=== PATIENT | female | born 1960 | race Caucasian/White ===

== ENCOUNTER 2016-05-01 20:12 | Inpatient (IN) | payer OTHER ==
[~2016-05-01] VITALS: Ht 170.2 cm; Wt 66.9 kg
[2016-05-01] VITALS (8 sets, daily range): BP systolic 145–180; BP diastolic 90–113; PULSE 86–105; RESP 15–61; TEMP 98.7; O2SAT 95–99; Ht 170.2 cm; Wt 66.9 kg
[~2016-05-01 20:12] MED LIST: MORP15TA78 PO
--- OUTSIDE RECORDS SUMMARY | 2016-05-01 20:17 | XMS REPORT | Continuity of Care Document ---
Author Author [facility] Organization [facility] Address Unknown Phone Unavailable Support Name Relationship Address Phone WENDY ALFARO MD Caregiver [address] [place] [address] Unavailable AGUS HERRERA DO Caregiver [address] [place] [address] Unavailable DEBBIEELROY BYRDY Debra Next Of Kin [address], [place] [id number] Insurance Providers Guarantor DebbieIveth Nela Address [address] [place] [address] Email DENIED/NO TO PT PORT [facility] Policy Number [id number] Subscriber's Name Steffen Oden Relationship 01 Spouse Group Number [id number] Group Name SUMI VIVEROS GOLD Effective Date 14 Payer [employer] Policy Number [id number] Subscriber's Name Iveth Oden Relationship 18 Self Group Number [id number] Problems Active Problems Medical Problem Onset Date Status Abnormal CT of the abdomen Unknown Acute Epigastric pain Unknown Acute Leukocytosis Unknown Acute RUQ pain Unknown Acute Past Problems Medical Problem Onset Date Foot laceration Unknown Medications Current Home Medications Medication Dose Units Route Directions Days Qty Instructions Start Date Morphine Sulfate (Ms Contin) 15 Mg Tablet.er 15 Mg Oral Daily for Pain 01/08/16 Social History Social History Problem Response Recorded Date/Time Onset Date Status Has the pt used tobacco in the last 12 months No 04/22/2014 5:58pm Not Applicable Not Applicable Tobacco Usage smoke 04/22/2014 6:15pm Not Applicable Not Applicable Hospital Discharge Instructions Current inpatient/outpatient. Discharge instructions are currently unavailable. Plan of Care Current inpatient/outpatient. The plan of care is currently unavailable Functional Status No functional status results. Allergies, Adverse Reactions, Alerts Allergen Type Severity Reaction Status Last Updated NKDA Allergy Unknown Active 04/22/14 Immunizations Query Response on File Recorded Date/Time Hx Influenza Vaccination No 04/22/14 5:58pm Hx Pneumococcal Vaccination No 04/22/14 5:58pm Hx Influenza Vaccination No 04/22/14 5:58pm Tdap Vaccine Hx PT REPORTS 2 YEARS AGO 01/08/16 5:39pm Vital Signs No known vital signs results. Results Laboratory Results Test Name Result Units Flags Reference Collection Date/Time Result Date/ Time Comments HLA-B27 Interpretation SEE BELOW 02/07/2016 2:45pm 02/09/2016 4: 15pm HLA-B27 antigen was not detected. ADDITIONAL INFORMATION Method: Flow Cytometry Performing Laboratory CLIA# [id number] Test Performed by: [place] [address] Principal Trainer: Evan Craig II, M.D., Ph.D. HLA-B27, [place] [address] Time Analysis Clerk Rafa King MD HLA-B27 Negative 02/07/2016 2:45pm 02/09/2016 4:15pm Reference Range: Not Applicable White Blood Count 9.5 T/MM3 4.5-11.0 04/04/2016 9:55am 04/04/2016 10: 06am Red Blood Count 3.62 M/MM3 L 4.00-5.20 04/04/2016 9:55am 04/04/2016 10: 06am Hemoglobin 10.2 GM/DL L 12-16 04/04/2016 9:55am 04/04/2016 10:06am Hematocrit 33.2 % L 36-46 04/04/2016 9:55am 04/04/2016 10:06am Mean Corpuscular Volume 91.7 UM3 80-100 04/04/2016 9:55am 04/04/2016 10 :06am Mean Corpuscular Hemoglobin 28.2 UUG 26-34 04/04/2016 9:55am 2015 10:06am Mean Corpuscular Hemoglobin Concent 30.7 GM/DL L 31-37 04/04/2016 9:55am 04/04/2016 10:06am RDW Standard Deviation 52.8 FL H 36.9-50.2 04/04/2016 9:55am 04/04/2016 10:06am Platelet Count 539 T/MM3 H 130-400 04/04/2016 9:55am 04/04/2016 10:06am Mean Platelet Volume 9.3 UM3 L 9.4-12.4 04/04/2016 9:55am 04/04/2016 10: 06am Neutrophils % (Manual) 72.0 % H 33-66 04/04/2016 9:55am 04/04/2016 10: 09am Band Neutrophils % 1.0 % 0-6 04/04/2016 9:55am 04/04/2016 10:09am Lymphocytes % (Manual) 16.0 % L 23-45 04/04/2016 9:55am 04/04/2016 10: 09am Monocytes % (Manual) 1.0 % 0-9.0 04/04/2016 9:55am 04/04/2016 10:09am Eosinophils % (Manual) 9.0 % H 0-4 04/04/2016 9:55am 04/04/2016 10:09am Basophils % (Manual) 1.0 % 0-2 04/04/2016 9:55am 04/04/2016 10:09am Metamyelocytes % 2.0 % H 0-0 03/21/2016 10:16am 03/21/2016 10:27am Myelocytes % 2.0 % H 0-0 03/21/2016 10:16am 03/21/2016 10:27am Band Neutrophils # 0.1 T/MM3 04/04/2016 9:55am 04/04/2016 10:09am Absolute Neutrophils (Manual) 6.8 T/MM3 1.8-7.7 04/04/2016 9:55am 04/04 10:09am Lymphocytes # (Manual) 1.5 T/MM3 1-4.8 04/04/2016 9:55am 04/04/2016 10: 09am Monocytes # (Manual) 0.1 T/MM3 0-0.8 04/04/2016 9:55am 04/04/2016 10: 09am Eosinophils # (Manual) 0.9 T/MM3 H 0-0.5 04/04/2016 9:55am 04/04/2016 10 :09am Basophils # (Manual) 0.1 T/MM3 0-0.2 04/04/2016 9:55am 04/04/2016 10: 09am Metamyelocytes # 0.9 T/MM3 03/21/2016 10:16am 03/21/2016 10:27am Myelocytes # 0.9 T/MM3 03/21/2016 10:16am 03/21/2016 10:27am Red Cell Morphology Comment ABNORMAL 04/04/2016 9:55am 04/04/2016 10:09am Anisocytosis 1+ 04/04/2016 9:55am 04/04/2016 10:09am Poikilocytosis 1+ 04/04/2016 9:55am 04/04/2016 10:09am Tear Drop Cells 1+ 03/29/2016 9:32am 03/29/2016 10:28am Icterus Index < 2 0-7 04/04/2016 9:55am 04/04/2016 10:10am Chemistry Specimen Hemolysis < 15 0-25 04/04/2016 9:55am 04/04/2016 10:10am 0-25: Specimen Exhibited No Hemolysis. Turbidity < 20 0-20 04/04/2016 9:55am 04/04/2016 10:10am Sodium Level 145 MEQ/L H 134-144 04/04/2016 9:55am 04/04/2016 10:10am Potassium Level 3.8 MEQ/L 3.6-5 04/04/2016 9:55am 04/04/2016 10:10am Chloride Level 105 MEQ/L 98-107 04/04/2016 9:55am 04/04/2016 10:10am Carbon Dioxide Level 28 MEQ/L 22-30 04/04/2016 9:55am 04/04/2016 10: 10am Anion Gap 12 MEQ/L 5-15 04/04/2016 9:55am 04/04/2016 10:10am Blood Urea Nitrogen 10.0 MG/DL 7-17 04/04/2016 9:55am 04/04/2016 10: 10am Creatinine 0.7 MG/DL 0.7-1.2 04/04/2016 9:55am 04/04/2016 10:10am BUN/Creatinine Ratio 14 RATIO 6-26 04/04/2016 9:55am 04/04/2016 10: 10am Glomerular Filtration Rate Calc 87 04/04/2016 9:55am 04/04/2016 10: 10am Glucose Level 130 MG/DL H 65-110 04/04/2016 9:55am 04/04/2016 10:10am Calculated Osmolality 280 MOSM/KG 261-280 04/04/2016 9:55am 04/04/2016 10:10am Calcium Level 9.1 MG/DL 8.4-10.2 04/04/2016 9:55am 04/04/2016 10:10am Total Bilirubin 0.50 MG/DL 0.20-1.30 04/04/2016 9:55am 04/04/2016 10: 10am Alkaline Phosphatase 83 U/L 38-126 04/04/2016 9:55am 04/04/2016 10: 10am Total Protein 6.9 G/DL 6.3-8.2 04/04/2016 9:55am 04/04/2016 10:10am Albumin 3.9 G/DL 3.5-5.0 04/04/2016 9:55am 04/04/2016 10:10am Globulin 3.0 G/DL 2.4-3.6 04/04/2016 9:55am 04/04/2016 10:10am Albumin/Globulin Ratio 1.3 RATIO 1.1-2.2 04/04/2016 9:55am 04/04/2016 10:10am Aspartate Amino Transf (AST/SGOT) 12 U/L L 14-36 04/04/2016 9:55am 04/04 10:10am Alanine Aminotransferase (ALT/SGPT) 22 U/L 9-52 04/04/2016 9:55am 04/04 10:10am Lactate Dehydrogenase 426 U/L 313-618 04/04/2016 9:55am 04/04/2016 10: 10am Procedures No known history of procedures. Encounters Encounter Location Arrival/Admit Date Discharge/Depart Date Attending Provider Registered [facility] 04/04/16 9:41am WENDY ALFARO MD Discharged Recurring [facility] 02/22/16 10:50am 04/07/16 11: 59pm WENDY ALFARO MD Registered Clinic [facility] 02/07/16 1:21pm AGUS HERRERA DO Registered [facility] 01/31/16 10:16am AGUS HERRERA DO
--- OUTSIDE RECORDS SUMMARY | 2016-05-01 20:17 | XMS REPORT | Continuity of Care Document ---
Author Author [facility] Organization [facility] Address Unknown Phone Unavailable Support Name Relationship Address Phone GREGG DAVIS MD Caregiver [address] [place] [address] [place] [address] [phone] OLINDA RAMSAY FACS, MD Caregiver [address] [place] [address] [place] [address] [phone] STEFFEN LEWIS Next Of Kin [address] [place], [place] [phone] Insurance Providers Payer Name Policy Number Subscriber Name Relationship CAP [id number] Steffen Lewis Advance Directives Directive Response Recorded Date/Time Ordered Resuscitation Status Full Code 04/22/14 6:04pm Resuscitation Documents on File No 04/22/14 5:57pm Chief Complaint and Reason for Visit Chief Complaint ABD PAIN ABN ABD CT SCAN Reason for Visit Leukocytosis Epigastric pain RUQ pain Abnormal CT of the abdomen Problems Medical Problems Problem Onset Date Status Leukocytosis Unknown Active Epigastric pain Unknown Active RUQ pain Unknown Active Abnormal CT of the abdomen Unknown Active Medications Medication Dose Route Sig Days/Qty Instructions Order Date Discontinued Date Status Citalopram Hydrobromide 1 Tab PO DAILY 04/22/14 Active Amox Tr/Potassium Clavulanate 875 Mg PO TWICE DAILY WITH MEALS 7 Days 04/28/14 Active Oxycodone HCl 5-10 Mg PO EVERY 5 HOURS PRN PAIN 40 Qty 04/28/14 Active Social History Social History Problem Response Recorded Date/Time Has the pt used tobacco in the last 12 months No 04/22/2014 5:58pm Tobacco Usage smoke 04/22/2014 6:15pm Query Response Start Date Stop Date Smoking Status Former smoker Hospital Discharge Instructions Instructions: Care Instructions: Reason for Hospitalization: Abdominal pain I was in the hospital because (patient own words): "MY STOMACH HURTS AND I NEED ANTIBIOTICS/PAIN KILLERS" Discharge Diet: regular Discharge Activity: Do not drive, operate machinery while taking pain medication. Follow Up Appointments: CBC in lab at [facility] April 30. Follow up with Dr. Ramsay on May 06 at 4 pm. Patient Instructions: May Shower Notify Physician If: 1. Call your surgeon if you are having problems relating to your hospitaliztion at [phone]. 2. Problems such as: Temp above 101.5 degrees 3.. If the office is closed, call [facility] at [phone] and have your Surgeon paged. Condition at time of discharge: Fair have your Surgeon paged. Condition at time of discharge: Fair Pass Plan of Care Discharge Date 04/28/14 11:10am Disposition 01 DISCHARGED HOME, SELF-CARE Instructions/Education Provided DI for Abdominal Pain-Adult Prescriptions See Medications Section Functional Status Query Response Date Recorded Physical Hygiene Self April 28, 2014 10:26am Disabilities None April 28, 2014 10:26am Devices Used None April 28, 2014 10:26am Dressing Self April 28, 2014 10:26am Ambulation Self April 28, 2014 10:26am Diet Self April 28, 2014 10:26am Mental Status Alert Oriented April 28, 2014 10:26am Disabilities None April 28, 2014 10:26am Devices Used None April 28, 2014 10:26am Physical Hygiene Self April 28, 2014 10:26am Dressing Self April 28, 2014 10:26am Ambulation Self April 28, 2014 10:26am Diet Self April 28, 2014 10:26am Allergies, Adverse Reactions, Alerts Allergen Type Severity Reaction Status Last Updated NKDA Allergy Unknown Active 04/22/14 Immunizations Name Given Type Hx Influenza Vaccination No Historical Hx Pneumococcal Vaccination No Historical Hx Influenza Vaccination No Historical Vital Signs Acute Vital Signs Vital Response Date/Time Temperature (Fahrenheit) 98.0 deg F (96.8 - 99.1) Temperature (Calculated Celsius) 36.67747 degrees C (36.0 - 37.3) Temperature Source Temporal Height 5 ft 7 in Weight 167 lb Body Mass Index 26.0 kg/m^2 Results Test Source Date Result Interp. Ref. Range Comments Alanine Aminotransferase (ALT/SGPT) April 23, 2014 5:00am 38 U/L N 9- 52 Albumin April 23, 2014 5:00am 3.5 G/DL N 3.5-5.0 Albumin/Globulin Ratio April 23, 2014 5:00am 1.3 RATIO N 1.1-2.2 Alkaline Phosphatase April 23, 2014 5:00am 70 U/L DN 38-126 Amylase Level April 23, 2014 5:00am 67 U/L N 30-110 Anion Gap April 27, 2014 4:34am 4 MEQ/L L 5-15 Anisocytosis April 23, 2014 5:00am 1+ - Aspartate Amino Transf (AST/SGOT) April 23, 2014 5:00am 41 U/L H 14- 36 BUN/Creatinine Ratio April 27, 2014 4:34am 13 RATIO N 6-26 Band Neutrophils # April 28, 2014 4:59am 1.6 T/MM3 - Band Neutrophils % April 28, 2014 4:59am 5.0 % N 0-6 Basophils # (Manual) April 28, 2014 4:59am 0.9 T/MM3 H 0-0.2 Basophils % (Manual) April 28, 2014 4:59am 3.0 % H 0-2 Blood Urea Nitrogen April 27, 2014 4:34am 9.0 MG/DL N 7-17 Calcium Level April 27, 2014 4:34am 9.2 MG/DL N 8.4-10.2 Calculated Osmolality April 27, 2014 4:34am 274 MOSM/KG N 261-280 Carbon Dioxide Level April 27, 2014 4:34am 29 MEQ/L N 22-30 Chemistry Specimen Hemolysis April 27, 2014 4:34am < 15 0-25 0-25: No Hemolysis.26-70: Slight Hemolysis - can falsely elevate K and Urine Protein. 71-285: Moderate Hemolysis - can falsely elevate K, Troponin I, CA 19-9, PTH, CSF GLucose, and Urine Protein, and can falsely decrease Phenytoin. 286-999: Gross Hemolysis - can falsely elevate K, Troponin I, CA 19-9, PTH, CSF Glucose, and Urine Protine, and can falsely decrease Phenytoin. Recommend specimen recollection. Chloride Level April 27, 2014 4:34am 110 MEQ/L H 98-107 Creatinine April 27, 2014 4:34am 0.7 MG/DL N 0.7-1.2 Eosinophils # (Manual) April 28, 2014 4:59am 2.8 T/MM3 H 0-0.5 Eosinophils % (Manual) April 28, 2014 4:59am 9.0 % H 0-4 Globulin April 23, 2014 5:00am 2.8 G/DL N 2.4-3.6 Glomerular Filtration Rate Calc April 27, 2014 4:34am 88 - Glucose Level April 27, 2014 4:34am 91 MG/DL N 65-110 Hematocrit April 28, 2014 4:59am 36.7 % N 36-46 Hemoglobin April 28, 2014 4:59am 12.1 GM/DL N 12-16 Icterus Index April 27, 2014 4:34am < 2 0-7 Lab Scanned Report April 22, 2014 9:08am LAB TEST FORM REQUEST [id number] - Lipase April 23, 2014 5:00am 28 U/L N 23-300 Lymphocytes # (Manual) April 28, 2014 4:59am 3.2 T/MM3 N 1-4.8 Lymphocytes % (Manual) April 28, 2014 4:59am 10.0 % L 23-45 Mean Corpuscular Hemoglobin April 28, 2014 4:59am 29.4 UUG N 26-34 Mean Corpuscular Hemoglobin Concent April 28, 2014 4:59am 33.0 GM/DL N 31-37 Mean Corpuscular Volume April 28, 2014 4:59am 89.3 UM3 N 80-100 Mean Platelet Volume April 28, 2014 4:59am 10.9 UM3 N 9.4-12.4 Metamyelocytes # April 28, 2014 4:59am 1.6 T/MM3 - Metamyelocytes % April 28, 2014 4:59am 5.0 % H 0-0 Monocytes # (Manual) April 28, 2014 4:59am 1.3 T/MM3 H 0-0.8 Monocytes % (Manual) April 28, 2014 4:59am 4.0 % N 0-9.0 Myelocytes # April 28, 2014 4:59am 0.3 T/MM3 - Myelocytes % April 28, 2014 4:59am 1.0 % H 0-0 Neutrophils # (Manual) April 28, 2014 4:59am 19.8 T/MM3 H 1.8-7.7 Neutrophils % (Manual) April 28, 2014 4:59am 63.0 % N 33-66 Platelet Count April 28, 2014 4:59am 484 T/MM3 H 130-400 Potassium Level April 27, 2014 4:34am 3.9 MEQ/L N 3.6-5 RDW Standard Deviation April 28, 2014 4:59am 47.2 FL N 36.9-50.2 Reactive Lymphocytes # April 24, 2014 4:53am 0.5 T/MM3 H 0-0 Reactive Lymphocytes % April 24, 2014 4:53am 2.0 % H 0-0 Red Blood Count April 28, 2014 4:59am 4.11 M/MM3 N 4.00-5.20 Sodium Level April 27, 2014 4:34am 143 MEQ/L N 134-144 Total Bilirubin April 23, 2014 5:00am 0.70 MG/DL N 0.20-1.30 Total Protein April 23, 2014 5:00am 6.3 G/DL N 6.3-8.2 Turbidity April 27, 2014 4:34am < 20 0-20 White Blood Count April 28, 2014 4:59am 31.5 T/MM3 PH 4.5-11.0 Name: IVETH LEWIS Unit #: [id number] : 1960 Sex: F Loc / Svc: SR DOS: Signed Report #: [id number] DIAGNOSTIC IMAGING REPORT TYPE OF EXAM: CT ABD/PELVIS W/CONTRAST ONLY Dictated By: KYLE TAYLOR MD INDICATION: ITS.REASON: followup CT ABD/PELVIS W/CONTRAST ONLY: Comparison: None Technique: Axial CT images were performed through the abdomen and pelvis after the administration of intravenous contrast. Contrast: Omnipaque 300 100 mL Findings: Tiny nonspecific nodules in the lower lobes bilaterally. These are not definitely calcified. Minimal atelectasis. The liver enhances normally and may be slightly enlarged. Gallbladder is within normal limits. The spleen is borderline enlarged at 14.5 cm anteroposterior dimension. Small splenule. The pancreas is normal. Adrenal glands are normal. Kidneys show low attenuation foci, too small to characterize. Excretion of contrast appears symmetric from both renal collecting systems. The ureters are normal in course and caliber. Bladder is moderately distended. Uterus is surgically absent. No significant free pelvic fluid. The small and large bowel are normal in caliber without evidence of obstruction. No abdominal or pelvic lymphadenopathy. The appendix is normal. Impression: 1. No acute disease process seen in the abdomen or pelvis. 2. Hepatosplenomegaly. 3. Indeterminate pulmonary nodules. Follow-up chest CT is recommended in 12 months to document stability. There is a preliminary report by [employer] . Addendum: Additional history was provided on April 27, 2014 at 1315. There is an area of induration and stranding in the anterior omentum with a phlegmonous area anterior to the fissure for the falciform ligament seen on axial images # 29 through 35. There is no focal fluid collection or drainable abscess. The area of inflammation measures 4.3 x 1.8 x 3.8 cm in size. This is reportedly much smaller than measurements on a prior study. There is no true enhancing mass in this location. The etiology of this is not entirely clear. Differential considerations would include trauma and omental infarct. . Procedures No known history of procedures. Encounters Encounter Location Date/Time Discharged Inpatient [facility] 04/23/14 10:11am Registered Clinic [facility] 04/22/14 8:40am Recent Diagnosis Leukocytosis Epigastric pain RUQ pain Abnormal CT of the abdomen
--- OUTSIDE RECORDS SUMMARY | 2016-05-01 20:18 | XMS REPORT | Continuity of Care Document ---
Author Author [facility] Organization [facility] Address Unknown Phone Unavailable Support Name Relationship Address Phone GREGG DAVIS MD Caregiver [address] [place] [address] [place] [address] Unavailable VIVIANE GUZMAN MD Caregiver [address] [place] [address] [place] [address] Unavailable DEBBIE STEFFEN A Next Of Kin [address], [place] [id number] Insurance Providers Guarantor DebbieIveth Nela Address [address] [place] [address] Email DENIED/NO TO PT PORT Payer Other A Insurance Policy Number [id number] Subscriber's Name Steffen Oden Relationship 01 Spouse Group Number [id number] Group Name SUMI ALCARAZ Effective Date 14 Payer [employer] Policy Number [id number] Subscriber's Name Iveth Oden Relationship 18 Self Group Number [id number] Chief Complaint and Reason for Visit Chief Complaint Laceration Reason for Visit [id number] Problems Active Problems Medical Problem Onset Date [...] smoke 04/22/2014 6:15pm Not Applicable Not Applicable Query Response Start Date Stop Date Smoking Status Former smoker Hospital Discharge Instructions No hospital discharge instructions. Plan of Care Discharge Date 01/08/16 6:50pm Disposition 01 DISCHARGED HOME, SELF-CARE Condition at Discharge Improved Instructions/Education Provided How to Care for a Laceration After Repair Prescriptions See Medication Section Referrals GREGG DAVIS MD Address: [address] [place] [address] [address] [place], [place] [phone] Additional Instructions/Education Suture removal on 01-21-16 in your PCP's office. Wash gently with soap and water daily. Apply triple antibiotic with clean dressing daily. Watch for signs and symptoms of infection (see treatment plan). Care Plan and Goals Physician Care Plan Problem: Foot Laceration Goal: Follow up with primary care provider Instructions: Take medications and follow care plan as discussed/written Functional Status No functional status results. Allergies, Adverse Reactions, Alerts Allergen Type Severity Reaction Status Last Updated NKDA Allergy Unknown Active 04/22/14 Immunizations Query Response on File Recorded Date/Time Hx Influenza Vaccination No 04/22/14 5:58pm Hx Pneumococcal Vaccination No 04/22/14 5:58pm Hx Influenza Vaccination No 04/22/14 5:58pm Tdap Vaccine Hx PT REPORTS 2 YEARS AGO 01/08/16 5:39pm Vital Signs Acute Vital Signs Vital Response Date/Time Temperature (Fahrenheit) 97.3 deg F (96.8 - 99.1) 01/08/2016 5:22pm Temperature (Calculated Celsius) 36.80906 degrees C (36.0 - 37.3) 01/08/2016 5:22pm Pulse Rate (adult) 71 bpm (60 - 100) 01/08/2016 5:22pm Respiratory Rate 16 breaths/min (10 - 20) 01/08/2016 5:22pm O2 Sat by Pulse Oximetry 96 % (90 - 100) 01/08/2016 5:22pm Blood Pressure 157/89 mm Hg 01/08/2016 5:22pm Height (Feet) 5 feet 01/08/2016 5:22pm Height (Inches) 7.00 inches 01/08/2016 5:22pm Weight (Kilograms) 82.730 kg 01/08/2016 5:22pm Body Mass Index (BMI) 28.0 01/08/2016 5:22pm Results No known relevant diagnostic tests, laboratory data and/or discharge summary. Procedures No known history of procedures. Encounters Encounter Location Arrival/Admit Date Discharge/Depart Date Attending Provider Departed Emergency Room [facility] 01/08/16 5:08pm 01/08/16 6: 50pm VIVIANE GUZMAN MD Recent Diagnosis
--- OUTSIDE RECORDS SUMMARY | 2016-05-01 20:18 | XMS REPORT | Continuity of Care Document ---
Author Author [facility] Organization [facility] Address Unknown Phone Unavailable Support Name Relationship Address Phone WENDY ALFARO MD Caregiver [address] [address] Unavailable AGUS HERRERA DO Caregiver [address] [place] [address] Unavailable DEBBIEELROY BYRDMayra Richardson Next Of Kin [address] [place], [place] [phone] Insurance Providers Guarantor DebbieIveth Nela Address [address] [place] [address] Email DENIED/NO TO PT PORT [facility] Policy Number [id number] Subscriber's Name Steffen Oden Relationship 01 Spouse Group Number [id number] Group Name SUMI VIVEROS GOLD Effective Date 14 Payer [employer] Policy Number [id number] Subscriber's Name Iveth Oden Relationship 18 Self Group Number [id number] Problems Active Problems Medical Problem Onset Date [...] Not Applicable Not Applicable Hospital Discharge Instructions No hospital discharge instructions. Plan of Care Prescriptions See Medication Section Functional Status No functional status results. Allergies, [...] INFORMATION Method: Flow Cytometry Performing Laboratory CLIA# [id number] Test Performed by: [place] [address] Test Consultant: Evan Craig II, M.D., Ph.D. HLA-B27, [place] [address] Whipped Topping Mixer Rafa King MD HLA-B27 Negative 02/07/2016 2:45pm [...] Location Arrival/Admit Date Discharge/Depart Date Attending Provider Discharged Recurring [facility] 04/04/16 9:41am 04/15/16 11:59pm WENDY ALFARO MD Discharged Recurring [facility] 02/22/16 10:50am 04/07/16 11: 59pm WENDY ALFARO MD Registered Clinic [facility] 02/07/16 1:21pm AGUS HERRERA DO Registered [facility] 01/31/16 10:16am AGUS HERRERA DO
--- NOTE | 2016-05-01 20:19 | NUR ---
EKG OBTAINED AND RESULTS GIVEN TO
--- NOTE | 2016-05-01 20:24 | NUR ---
IV/LAB 20 GAUGE IV TO RIGHT AC ABLE TO ASPIRATE BLOOD. SPECIMEN OBTAINED AND SENT TO LAB
--- NOTE | 2016-05-01 20:29 | NUR ---
ASA GIVEN PO PER ORDERS AT THIS TIME
[2016-05-01] MEDS ORDERED: NORMAL SALINE 1,000 ML IV ONE (20:30)
[2016-05-01] MEDS ORDERED: ASPIRIN 81 MG CHEWABLE TABLET PO ONE (20:30)
--- NOTE | 2016-05-01 20:30 | NUR ---
EMESIS PATIENT VOMITED IMMEDIATELY AFTER TAKING ASA
--- NOTE | 2016-05-01 20:33 | NUR ---
ZOFRAN GIVEN PER ORDERS AT THIS TIME
--- NOTE | 2016-05-01 20:34 | ERPDOC ---
Departure Disposition Decision Date: May 01, 2016 Disposition Decision Time: 21:24 Disposition: 02 TO [facility] Impression Impression Impression: Primary Impression: Non-STEMI (non-ST elevated myocardial infarction) Additional Impressions: Unstable angina Elevated troponin Severity: Severe Condition: Improved Seen By: Physician only Referrals: AGUS HERRERA DO (Family) Problems/Meds/Labs Reviewed?: Yes Medications reviewed and manag: Yes Follow up care ordered?: Yes Mental Status: Alert Critical Care Note Total Time (mins): 55 Critical Care Spent: [id number] care of pt, Reviewing test results, Discuss the case w/staff, Documenting the MR, Discussion w/ family/DPOA During this visit the pt was: Critically Ill, At Risk of Deterioration HPI - Chest Pain General Stated Complaint: CP Time Seen by Provider: 20:18 Source: patient, family Exam Limitations: no limitations HPI - Chest Pain Initial Comments Patient has history of CML, has been taking Tasigna daily, and has been having daily exertional angina each time she takes it. Today the patient's symptoms have worsened with angina at rest, severe chest pain, tightness, and breath. Despite resting, the patient's symptoms have not improved. No known history of coronary disease or CHF, patient did have a negative heart workup several years ago, prior to starting the medication. Occurred At: home Onset/Timing: Rapid Duration: 4-6 hrs Activities at Onset/Context: none Location: substernal Quality: squeezing, tightness Associated Symptoms: nausea/vomiting, shortness of breath, DENIES: abdominal pain, back pain, diaphoresis, dizziness, edema, fast HR, fatigue, fever/chills, headache, heartburn, irregular HR, rash, slow HR, swelling/lump in chest, syncope, weakness Chest Pain Radiation: arms, back Nitro Today/Relief: provided by ED Aspirin Treatment Today: 81 mg x 4, provided by ED Prior Chest Pain/Cardiac Nabil: non-cardiac Hx of Similar Symptoms: Yes Allergies: Coded Allergies: NKDA (Unverified Allergy, Unknown, 04/22/14) Past History Past Medical History Metabolic: cancer Infectious: hepatitis B, hepatitis C Psychological: alcohol abuse, depression Surgical History Reproductive/: hysterectomy, other Family History Family PMH: FOUND: CAD, COPD, other Vaccines Hx Influenza Vaccination: No Hx Pneumococcal Vaccination: No Social History Sexuality: male partner Review of Systems Constitutional Constitutional: DENIES: appetite decrease, appetite increase, chills, dizziness , fever, weakness ENMT Ears: DENIES: pain Hearing: DENIES: hearing loss, tinnitus Balance: DENIES: vertigo Mouth/Throat: DENIES: change in swallowing, change in voice, hoarsness, painful swallowing, sore throat Cardiovascular Cardiac: chest pain, DENIES: dyspnea on exertion Rhythm/Rate: DENIES: irregular beat, palpitations, tachycardia Vascular: DENIES: pedal edema Pulmonary Respiratory: dyspnea, DENIES: cough, hyperventilation, pleuritic chest pain, pneumonia hx, tachypnea GI Upper Abdomen: DENIES: dysphagia, heartburn/indigestion, nausea, pain, vomiting Lower Abdomen: DENIES: blood in stool, constipation, diarrhea, pain General: DENIES: burning, dysuria, frequency, pain, urgency Musculoskeletal General: DENIES: cramps, joint pain, joint swelling, pain, weakness Integumentary Skin: DENIES: rash, sores Neurological General: DENIES: headache, numbness, tingling, vertigo, weakness Psychiatric Psychiatric: DENIES: anxiety, depression, nervousness Physical Exam General General Nourishment: well nourished, well developed, appears stated age General Body Habitus: well groomed Vitals and Pain First Documented Vital Signs Date Time Temp Pulse Resp B/P Pulse Ox O2 Delivery O2 Flow Rate FiO2 05/01/16 20:12 97.2 120 24 229/126 100 Room Air Weight: Kilograms: Height (feet): 5 Height (inches): 7.00 Triage Pain Scale: RN VS reviewed by Provider: Yes Normal Exams: Head: Normocephalic w/o trauma Eyes: Pupils are PERRLA w/ EOMI, No scleral icterus, irritation, or foreign bodies noted ENMT: No facial trauma, nasal exudates, pharyngeal erythema, or exudates are noted Neck: Full range of motion, without adenopathy, JVD, bruits or thyromegaly Neck (brief) Neck: FOUND: trachea midline, NOT FOUND: JVD, adenopathy, carotid bruits, nuchal rigidity, spasm, tenderness, thyromegaly, tracheal deviation Respiratory (brief) Respiratory: FOUND: clear all kapoor, equal bilaterally, symmetrical, NOT FOUND : rales, tenderness, wheezes Cardiovascular (brief) Cardiac: FOUND: regular rhythm, NOT FOUND: pedal edema, regular rate ( Tachycardic) Capillary Refill: <2 sec Pulses: all distal extremities, equal, strong Abdomen (brief) Abdominal Brief: FOUND: bowel normo active x4, soft, NOT FOUND: distended, hepatosplenomegaly, tender Lymphatic (brief) Lymphatic Brief: NOT FOUND: adenopathy, lymphedema Musculoskeletal (brief) Musculoskeletal Brief: NOT FOUND: deformity, loss of motion, spasm, tenderness Integumentary (brief) Integumentary Brief: FOUND: dry, pink, warm Neurologic (brief) Neurological Brief: FOUND: CN w/o gross def to obs, motor-no gross deficits, sensory-no gross deficits Psychiatric (brief) Psychiatric Brief: FOUND: alert, attentive, normal affect, oriented Comments initially pt was quite anxious and nearly hysterical. As sx improved pt calmed Progress Results/Orders Orders Procedure Category Date Status Time Cbc W/Auto LAB 05/01/16 Complete Diff-Reflex Manual 20:25 Cmp - Comprehensive LAB 05/01/16 Complete Metabolic 20:25 Probnp LAB 05/01/16 Complete 20:25 Troponin I W LAB 05/01/16 Complete Hemolysis Index 20:25 INR LAB 05/01/16 Complete 20:25 EKG EKG 05/01/16 Taken 20:25 Chest 1 View RAD 05/01/16 Taken 20:25 Iv Lock (Ed Only) EDM 05/01/16 Transmitted 20:25 Aspirin (Asa) PHA 05/01/16 Complete 20:30 Nitroglycerin PHA 05/01/16 In Process (Nitrostat) 20:30 Lipase LAB 05/01/16 Complete Normal Saline (Normal PHA 05/01/16 Complete Saline Iv) 20:30 Ondansetron Inj PHA 05/01/16 Complete (Zofran) 20:45 Nitroglycerin PHA 05/01/16 Complete Ointment (Nitro-Bid) 21:00 Lab Results Laboratory Tests Test 05/01/16 20:24 White Blood Count 9.7T/MM3 Red Blood Count 4.71M/MM3 Hemoglobin 12.8GM/DL Hematocrit 40.0% Mean Corpuscular Volume 84.9UM3 Mean Corpuscular Hemoglobin 27.2UUG Mean Corpuscular Hemoglobin Concent 32.0GM/DL RDW Standard Deviation 45.7FL Platelet Count 374T/MM3 Mean Platelet Volume 11.8UM3 Immature Granulocyte % (Auto) 0.3% Neutrophils (%) (Auto) 55.8% Lymphocytes (%) (Auto) 29.1% Monocytes (%) (Auto) 4.9% Eosinophils (%) (Auto) 5.5% Basophils (%) (Auto) 4.4% Absolute Immature Granulocyte (auto 0.03T/MM3 Absolute Neutrophils (auto) 5.4T/MM3 Absolute Lymphocytes (auto) 2.8T/MM3 Absolute Monocytes (auto) 0.5T/MM3 Absolute Eosinophils (auto) 0.5T/MM3 Absolute Basophils (auto) 0.4T/MM3 Prothromb Time International Ratio 1.10 Turbidity < 20 Sodium Level 142MEQ/L Potassium Level 3.6MEQ/L Chloride Level 105MEQ/L Carbon Dioxide Level 23MEQ/L Anion Gap 14MEQ/L Blood Urea Nitrogen 18.0MG/DL Creatinine 0.8MG/DL Glomerular Filtration Rate Calc 74 BUN/Creatinine Ratio 23RATIO Glucose Level 135MG/DL Calculated Osmolality 277MOSM/KG Calcium Level 10.2MG/DL Total Bilirubin 0.60MG/DL Icterus Index < 2 Aspartate Amino Transf (AST/SGOT) 17U/L Alanine Aminotransferase (ALT/SGPT) 22U/L Alkaline Phosphatase 112U/L Troponin I 0.124ng/ml CT-Crl-O-Type Natriuretic Peptide 757PG/ML Total Protein 8.6G/DL Albumin 4.9G/DL Globulin 3.7G/DL Albumin/Globulin Ratio 1.3RATIO Lipase 54U/L Chemistry Specimen Hemolysis 31 Medications Current ED Medications Aspirin (ASA) 324 mg O ONCE PO ; Start 05/01/16 at 20:30; Stop 05/01/16 at 20: 31; Status DC Nitroglycerin 0.4 mg 0.4 mg Q5MIN PRN SL CHEST PAIN; Start 05/01/16 at 20:30 Sodium Chloride (Normal Saline IV) 1,000 ml @ 0 mls/hr Q0M ONCE IV ; Start at 20:30; Stop 05/01/16 at 20:31; Status DC Ondansetron HCl (Zofran) 4 mg O ONCE IV ; Start 05/01/16 at 20:45; Stop at 20:46; Status DC Nitroglycerin (Nitro-Bid) 1 inch O ONCE TOP ; Start 05/01/16 at 21:00; Stop at 21:01; Status DC Progress Progress Initial EKG - Sinus tach with ST depression in lateral leads and significant artifact. Pain greatly improved with NTG SL - 1" paste placed - to relief CBC - n CMP/L - n TROP - n CXR - n Discussed with Dr. Gardner, will admit to CCU, heparinize and follow. JULISSA NELSON MD May 01, 2016 20:34
[2016-05-01] MEDS: NITROGLYCERIN 0.4 MG SUBLINGUAL TABLET SL PRN ×3 (20:37→20:47)
--- NOTE | 2016-05-01 20:37 | NUR ---
NITRO SL TAB GIVEN PER ORDERS RATES CHEST PAIN 6/10
[2016-05-01 20:39] LABS: BASOPHILS # (AUTO) 0.4 T/MM3 (0-0.2); BASOPHILS % (AUTO) 4.4 % (0-2); EOSINOPHILS # (AUTO) 0.5 T/MM3 (0-0.5); EOSINOPHILS % (AUTO) 5.5 % (0-4); HGB - HEMOGLOBIN 12.8 GM/DL (12-16); IMMATURE GRANULOCYTE # (AUTO) 0.03 T/MM3 (0.00-0.03); IMMATURE GRANULOCYTE % (AUTO) 0.3 % (0.0-0.5); LYMPHOCYTES # (AUTO) 2.8 T/MM3 (1-4.8); LYMPHOCYTES % (AUTO) 29.1 % (23-45); MEAN CORPUSCULAR HGB 27.2 UUG (26-34); MEAN CORPUSCULAR VOLUME 84.9 UM3 (80-100); MEAN PLATELET VOLUME 11.8 UM3 (9.4-12.4); MONOCYTES # (AUTO) 0.5 T/MM3 (0-0.8); MONOCYTES % (AUTO) 4.9 % (0-9.0); NEUTROPHILS #(AUTO)-ABSOLUTE 5.4 T/MM3 (1.8-7.7); NEUTROPHILS % (AUTO) 55.8 % (33-66); RED BLOOD COUNT 4.71 M/MM3 (4.00-5.20); WBC - WHITE BLOOD COUNT 9.7 T/MM3 (4.5-11.0)
[2016-05-01 20:41] LABS: ALBUMIN 4.9 G/DL (3.5-5.0); ALBUMIN/GLOBULIN RATIO 1.3 RATIO (1.1-2.2); ALKALINE PHOSPHATASE 112 U/L (38-126); ALT (SGPT) 22 U/L (9-52); ANION GAP 14 MEQ/L (5-15); AST (SGOT) 17 U/L (14-36); BUN/CREATININE RATIO 23 RATIO (6-26); CALCIUM 10.2 MG/DL (8.4-10.2); CHLORIDE 105 MEQ/L (98-107); CO2 - CARBON DIOXIDE 23 MEQ/L (22-30); CREATININE 0.8 MG/DL (0.7-1.2); GLOMERULAR FILTRATION RATE 74; GLUCOSE 135 MG/DL (65-110); POTASSIUM 3.6 MEQ/L (3.6-5); SODIUM 142 MEQ/L (134-144); TOTAL PROTEIN 8.6 G/DL (6.3-8.2)
--- NOTE | 2016-05-01 20:42 | NUR ---
2ND NITRO SL TAB GIVEN PER ORDERS RATES PAIN 4/10
[2016-05-01] MEDS ORDERED: ONDANSETRON 4mg/2ml INJECTION IV ONE (20:45)
--- NOTE | 2016-05-01 20:47 | NUR ---
3RD NITRO SL TAB GIVEN PER ORDERS RATES PAIN 4/10
[2016-05-01 20:52] LABS: PROBNP 757 PG/ML (0-175)
[2016-05-01] MEDS ORDERED: NILO150C PO (20:55)
[2016-05-01] MEDS ORDERED: OXYC5CAP3 PO (20:55)
[2016-05-01] MEDS ORDERED: NITROGLYCERIN 2% OINTMENT 1 G PACKET TOP ONE (21:00)
[2016-05-01 21:04] LABS: INR 1.1 (0.76-1.04)
--- NOTE | 2016-05-01 21:28 | NUR ---
EKG REPEAT EKG OBTAINED AND RESULTS GIVEN TO PATIENT MUCH MORE CALM AND RELAXED AT THIS TIME
[2016-05-01] MEDS ORDERED: D5W IV SCH (21:30)
[2016-05-01] MEDS ORDERED: HEPARIN IV SCH (21:30)
[2016-05-01] MEDS ORDERED: NITROGLYCERIN 0.4 MG SUBLINGUAL TABLET SL PRN (21:30)
[2016-05-01] MEDS ORDERED: MORPHINE SULFATE 4 MG SYRINGE IV ONE (21:30)
--- OUTSIDE RECORDS SUMMARY | 2016-05-01 21:46 | XMS REPORT | Continuity of Care Document ---
Author Author [facility] Organization [facility] Address Unknown Phone Unavailable Support Name Relationship Address Phone GREGG DAVIS MD Caregiver [address] [place] [address] [place] [address] [phone] OLINDA RAMSAY FACS, MD Caregiver [address] [place] [address] [place] [address] [phone] STEFFEN LEWIS Next Of Kin [address] [place], [place] [id number] Insurance Providers Payer Name Policy Number Subscriber Name Relationship CAP [id number] Steffen Lewis Advance Directives Directive Response Recorded [...] having problems relating to your hospitaliztion at [phone]. 2. Problems such as: Temp above 101.5 degrees 3.. If the office is closed, call [facility] at [phone] and have your Surgeon paged. Condition at [...] F (96.8 - 99.1) Temperature (Calculated Celsius) 36.21784 degrees C (36.0 - 37.3) Temperature Source [...] 22, 2014 9:08am LAB TEST FORM REQUEST [id number] - Lipase April 23, 2014 5:00am 28 [...] PH 4.5-11.0 Name: IVETH LEWIS Unit #: [id number] : [id number] Sex: F Loc / Svc: SR DOS: Signed Report #: [id number] DIAGNOSTIC IMAGING REPORT TYPE OF EXAM: CT [...] stability. There is a preliminary report by [employer]. . Addendum: Additional history was provided on [...] procedures. Encounters Encounter Location Date/Time Discharged Inpatient [facility] 04/23/14 10:11am Registered Clinic [facility] 04/22/14 8:40am Recent Diagnosis Leukocytosis Epigastric pain RUQ pain Abnormal CT of the abdomen
--- OUTSIDE RECORDS SUMMARY | 2016-05-01 21:54 | XMS REPORT | Continuity of Care Document ---
Author Author [facility] Organization [facility] Address Unknown Phone Unavailable Support Name Relationship Address Phone GREGG DAVIS MD Caregiver [address] [place] [address] [place] [address] [phone] OLINDA RAMSAY FACS, MD Caregiver [address] [place] [address] [place] [address] [phone] STEFFEN LEWIS Next Of Kin [address] [place], [place] [id number] Insurance Providers Payer Name Policy Number Subscriber Name Relationship CAP [id number] Steffen Lewis Advance Directives Directive Response Recorded [...] having problems relating to your hospitaliztion at [phone]. 2. Problems such as: Temp above 101.5 degrees 3.. If the office is closed, call [facility] at [phone] and have your Surgeon paged. Condition at [...] F (96.8 - 99.1) Temperature (Calculated Celsius) 36.39689 degrees C (36.0 - 37.3) Temperature Source [...] 22, 2014 9:08am LAB TEST FORM REQUEST [id number] - Lipase April 23, 2014 5:00am 28 [...] PH 4.5-11.0 Name: IVETH LEWIS Unit #: [id number] : [id number] Sex: F Loc / Svc: SR DOS: Signed Report #: [id number] DIAGNOSTIC IMAGING REPORT TYPE OF EXAM: CT [...] stability. There is a preliminary report by [facility]. . Addendum: Additional history was provided on [...] procedures. Encounters Encounter Location Date/Time Discharged Inpatient [facility] 04/23/14 10:11am Registered Clinic [facility] 04/22/14 8:40am Recent Diagnosis Leukocytosis Epigastric pain RUQ pain Abnormal CT of the abdomen
--- NOTE | 2016-05-01 21:55 | NUR ---
REPORT GIVEN TO LESLEY APARICIO IN CCU AT THIS TIME
--- NOTE | 2016-05-01 22:05 | NUR ---
ADMIT CCU 2, WALKED FROM CART TO BED, C/O OF 8/10 CHEST PAIN AND PRESSURE WITH ACTIVITY, MS GIVEN AND EMMIE LEO, PT RESTING IN BED, VSS, WILL CONTINUE TO MONITOR.
--- NOTE | 2016-05-01 22:05 | NUR ---
ADMIT TRANSFERED PATIENT TO CCU ROOM 2 AT THIS TIME IVF AND HEPARIN DRIP CONTINUE TO INFUSE PERSONAL BELONGINGS SENT HOME WITH PATIENT
[2016-05-01] MEDS: MORPHINE SULFATE 2 MG SYRINGE IV PRN ×2 (22:10→23:55)
[2016-05-01] MEDS ORDERED: ACETAMINOPHEN 325 MG TABLET PO PRN (22:45)
[2016-05-01] MEDS ORDERED: NAPROXEN 500 MG TABLET PO PRN (22:45)
[2016-05-01] MEDS ORDERED: KETOROLAC 15mg/ml INJECTION IV PRN (23:45)
[2016-05-02] VITALS (72 sets, daily range): BP systolic 103–200; BP diastolic 59–114; PULSE 64–108; RESP 11–55; TEMP 98.1–98.3; O2SAT 94–100
--- NOTE | 2016-05-02 00:29 | NUR ---
PRNs FOR HTN WHILE RESTING IN BED PT'S BP IS 180/113, RN WAKES PT, PT RATES CHEST/BACK PAIN AT 4/10 AND STATES THAT THIS IS "NOT BAD AT ALL, SO MUCH BETTER", PT REFUSES NAPROXEN FOR ULCERS, REFUSES TYLENOL FOR INCAPABILITY WITH CHEMO DRUG, STATES SHE DOESN'T NEED ANY OXY EITHER, RN REPORTED HTN AND TACHYCARDIA TO EMMIE NATION APRN, WHO WISHES FOR US TO "GET THE PT'S PAIN UNDER CONTROL", ORDERS TO TRY ADDITIONAL MS, TORADOL AND NITRO, IF BP STILL HIGH MAY TRY 1X DOSE OF METOPROLOL. ORDERS ENTERED AND INITIATED, WILL F/U WITH EMMIE IF NECESSARY.
[2016-05-02] MEDS ORDERED: METOPROLOL 5mg/5ml INJECTION IV ONE (00:30)
--- NOTE | 2016-05-02 01:00 | NUR ---
F/U PRNs PAIN PREVIOUSLY RATED AT 4/10, LATER PT UP TO BR AND BACK TO BED PT RATES PAIN AT 2/10, PREVIOUSLY 8/10 WITH ACTIVITY. PT RESTING COMFORTABLY IN BED, BP STILL ELEVATED @ 164/108 WITH HR 80BPM, 2ND NITRO GIVEN, WILL CONTINUE TO MONITOR.
--- NOTE | 2016-05-02 01:13 | NUR ---
F/U HTN BP BACK TO BASELINE OF 150/95. RESTING IN BED, WILL CONTINUE TO MONITOR.
--- NOTE | 2016-05-02 05:31 | NUR ---
SLEEP PT HAS BEEN RESTING PEACEFULLY IN BED FOR MOST OF THE NIGHT, STATES THIS MORNING THAT SHE FINALLY SLEPT WELL. Addendum: 05/02/16 at 0532 by ALESSANDRA COLEMAN RN APPROX [id number]
--- NOTE | 2016-05-02 06:08 | NUR ---
SKIDDER LOADER RECEIVED TELEPHONE ORDER FOR CARDIAC DIET LAST NIGHT PER EMMIE NATION APRN. PT ATE 2 SALTINE CRACKERS AND HAS 100CC OF WATER AT 2300, PT HAD 90CC MORE WATER JUST BEFORE 0100. PT HAS BEEN NPO SINCE 0100 AND AGREES TO REMAIN NPO THIS MORNING UNTIL NURSING STAFF CAN CLARIFY WITH DR IF ANY DX PROCEDURES MAY BE PLANNED FOR TODAY.
--- NOTE | 2016-05-02 08:01 | DI ---
Indication: ITS.REASON: chest pain and back pain for three weeks PROCEDURE: CHEST 1 VIEW: Encounter: Initial Comparison: April 23, 2014 Findings: The lungs are stable in appearance without new focal airspace consolidation. There is no pleural effusion or pneumothorax. The heart size, pulmonary vascularity and mediastinal contours are unchanged. IMPRESSION: Stable appearance of the chest without acute cardiopulmonary disease. .
[2016-05-02 08:05] LABS: BASOPHILS # (AUTO) 0.4 T/MM3 (0-0.2); EOSINOPHILS # (AUTO) 0.2 T/MM3 (0-0.5); EOSINOPHILS % (AUTO) 3.2 % (0-4); HCT - HEMATOCRIT 36.9 % (36-46); HGB - HEMOGLOBIN 11.8 GM/DL (12-16); IMMATURE GRANULOCYTE # (AUTO) 0.01 T/MM3 (0.00-0.03); IMMATURE GRANULOCYTE % (AUTO) 0.2 % (0.0-0.5); LYMPHOCYTES # (AUTO) 1.3 T/MM3 (1-4.8); LYMPHOCYTES % (AUTO) 20.5 % (23-45); MEAN CORPUSCULAR HGB 27.1 UUG (26-34); MEAN CORPUSCULAR VOLUME 84.8 UM3 (80-100); MEAN PLATELET VOLUME 11.1 UM3 (9.4-12.4); MONOCYTES # (AUTO) 0.2 T/MM3 (0-0.8); MONOCYTES % (AUTO) 3.8 % (0-9.0); NEUTROPHILS #(AUTO)-ABSOLUTE 4.2 T/MM3 (1.8-7.7); NEUTROPHILS % (AUTO) 66.3 % (33-66); RED BLOOD COUNT 4.35 M/MM3 (4.00-5.20); WBC - WHITE BLOOD COUNT 6.3 T/MM3 (4.5-11.0)
[2016-05-02 08:13] LABS: ANION GAP 12 MEQ/L (5-15); BUN/CREATININE RATIO 20 RATIO (6-26); CHLORIDE 106 MEQ/L (98-107); CO2 - CARBON DIOXIDE 25 MEQ/L (22-30); CREATININE 0.7 MG/DL (0.7-1.2); GLOMERULAR FILTRATION RATE 87; GLUCOSE 117 MG/DL (65-110); POTASSIUM 3.9 MEQ/L (3.6-5); SODIUM 143 MEQ/L (134-144)
[2016-05-02 08:14] LABS: CALCIUM 9.6 MG/DL (8.4-10.2)
[2016-05-02 08:44] LABS: THYROID STIM HORMONE-TSH 1.71 MIU/L (0.47-4.68)
[2016-05-02] MEDS ORDERED: ASPIRIN *EC* 81mg TABLET PO SCH (09:00)
[2016-05-02] MEDS ORDERED: NILOTINIB HCL 150 MG PO SCH (09:00)
[2016-05-02] MEDS ORDERED: OXYCODONE I.R. 5 MG TABLET PO SCH (09:00)
--- NOTE | 2016-05-02 09:00 | NUR ---
AM cares: are done at the bedside.
[2016-05-02] MEDS: MORPHINE SULFATE SR 15 MG TABLET PO SCH (09:08)
[2016-05-02] MEDS ORDERED: OXYCODONE I.R. 5 MG TABLET PO PRN (09:15)
--- NOTE | 2016-05-02 09:53 | NUR ---
CM CM IN TO VISIT PATIENT, SHE IS A&O. PATIENT PLANS TO DISCHARGE HOME AND DENIES ANY DISCHARGE NEEDS. CM CONTACT INFORMATION GIVEN. Addendum: 05/02/16 at 0955 by JOSE SUNG RN Amended: Links added.
--- NOTE | 2016-05-02 09:55 | NUR ---
CARDIAC REHAB I EXPLAINED THE CARDIAC REHAB PROGRAM AND GAVE PAMPHLET, WILL CALL LATER THIS WEEK.
[2016-05-02] MEDS: CARVEDILOL 3.125 MG TABLET PO SCH ×2 (10:12→19:12)
[2016-05-02] MEDS: LISINOPRIL 2.5 MG TABLET PO SCH (10:12)
[2016-05-02] MEDS: NORMAL SALINE 1,000 ML IV SCH ×2 (10:14→23:35)
--- NOTE | 2016-05-02 10:14 | NUR ---
IV fluids: Ns at 75 ml/hr is started per preheart cath orders.
--- NOTE | 2016-05-02 10:27 | CONSPD ---
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 She has had chest pain intermittently with Tasigna. The dose was adjusted; decreased and her pain lessened. A week later, she was tolerating Tasigna well- no further chest pain, and dose was increased to 2 tablets BID. Stated had no chest pain for a few days, then 2 days ago developed heavy anterior wall chest pain after she took her morning dose. Pain resolved with rest. She did not take the evening dose, but states chest pain recurred, and felt pain was more severe. She then came to the emergency room. Is being followed by and scheduled for heart catheterization later this morning. At time of intake, is alert and oriented. Answers questions appropriately. Denies fever, chills, or night sweats. Denies chest pain currently. Nothing by mouth in anticipation of procedure. Voiding normally. Mildly anxious. Past Medical History Current Medications Home Meds Reported Medications Ondansetron HCl (Ondansetron HCl) 8 Mg Tablet, 8 MG PO TID Y for NAUSEA 05/02/16 Nilotinib HCl (Tasigna) 150 Mg Capsule, 150 MG PO QID 05/01/16 Oxycodone HCl (Oxycodone HCl) 5 Mg Capsule, 10 MG PO BID 05/01/16 Morphine Sulfate (Ms Contin) 15 Mg Tablet.er, 15 MG PO BID 01/08/16 Allergies: Coded Allergies: imatinib (Verified Allergy, Severe, rash, 05/02/16) Family History Family History: Mother age 52 of heart disease, father age 70 of bowel obstruction. One sister with history of DVT, one sister with cervical cancer diagnosed at age 53, living Social History Smoking Status: Former smoker (40 pack year history. Quit 2013) Sexuality: male partner Number of Children: 1 Advance Directives: No DPOA for Healthcare Only Review of Systems Constitutional: DENIES: chills, fever, night sweats, weight gain, weight loss Eyes Vision: REPORTS: double vision ENMT Mouth/Throat: DENIES: change in swallowing, sore throat Cardiovascular chest pain, see HPI, DENIES: dyspnea on exertion Pulmonary Respiratory: DENIES: cough, dyspnea, sputum GI Upper Abdomen: DENIES: dysphagia, nausea, vomiting General: DENIES: dysuria, hematuria Female: menopause Musculoskeletal General: other (chronic low back pain.), DENIES: weakness Integumentary Skin: DENIES: itching, rash Neurological General: DENIES: change in strength, headache Psychiatric Psychiatric: anxiety, DENIES: memory impairment Endocrine DENIES: heat/cold intolerance, polydipsia Physical Exam General General Nourishment: well nourished, well developed Vital Signs Vital Signs Date Time Temp Pulse Resp B/P Pulse Ox O2 Delivery O2 Flow Rate FiO2 05/02/16 07:44 77 05/02/16 07:39 98.3 23 152/98 99 Room Air Height (Feet): 5 Height (Inches): 7.00 Eyes Brief: FOUND: PERRL, NOT FOUND: scleral icterus Neck Brief: NOT FOUND: adenopathy, tenderness Respiratory Brief: FOUND: clear all kapoor, NOT FOUND: wheezes Cardiovascular (brief) Cardiac Brief: FOUND: regular rate, regular rhythm, NOT FOUND: pedal edema Abdomen (brief) Abdominal Brief: FOUND: BS normo active x4, NOT FOUND: hepatosplenomegaly, tender Lymphatic (brief) Lymphatic Brief: NOT FOUND: adenopathy Integumentary (brief) Integumentary Brief: FOUND: dry, warm, NOT FOUND: rash Neurologic (brief) Neurological Brief: FOUND: cranial 2-12 intact, NOT FOUND: motor (no acute motor deficit) Neurologic RN Documented GCS Eye Opening: Verbal: Motor: Total: Psychiatric (brief) FOUND: alert, attentive, normal affect, oriented Laboratory Laboratory Tests Test 05/01/16 20:24 05/02/16 02:10 05/02/16 07:59 White Blood Count 9.7T/MM3 6.3T/MM3 Red Blood Count 4.71M/MM3 4.35M/MM3 Hemoglobin 12.8GM/DL 11.8GM/DL Hematocrit 40.0% 36.9% Mean Corpuscular Volume 84.9UM3 84.8UM3 Mean Corpuscular Hemoglobin 27.2UUG 27.1UUG Mean Corpuscular Hemoglobin Concent 32.0GM/DL 32.0GM/DL RDW Standard Deviation 45.7FL 45.9FL Platelet Count 374T/MM3 303T/MM3 Mean Platelet Volume 11.8UM3 11.1UM3 Immature Granulocyte % (Auto) 0.3% 0.2% Neutrophils (%) (Auto) 55.8% 66.3% Lymphocytes (%) (Auto) 29.1% 20.5% Monocytes (%) (Auto) 4.9% 3.8% Eosinophils (%) (Auto) 5.5% 3.2% Basophils (%) (Auto) 4.4% 6.0% Absolute Immature Granulocyte (auto 0.03T/MM3 0.01T/MM3 Absolute Neutrophils (auto) 5.4T/MM3 4.2T/MM3 Absolute Lymphocytes (auto) 2.8T/MM3 1.3T/MM3 Absolute Monocytes (auto) 0.5T/MM3 0.2T/MM3 Absolute Eosinophils (auto) 0.5T/MM3 0.2T/MM3 Absolute Basophils (auto) 0.4T/MM3 0.4T/MM3 Prothromb Time International Ratio 1.10 Turbidity < 20 < 20 Sodium Level 142MEQ/L 143MEQ/L Potassium Level 3.6MEQ/L 3.9MEQ/L Chloride Level 105MEQ/L 106MEQ/L Carbon Dioxide Level 23MEQ/L 25MEQ/L Anion Gap 14MEQ/L 12MEQ/L Blood Urea Nitrogen 18.0MG/DL 14.0MG/DL Creatinine 0.8MG/DL 0.7MG/DL Glomerular Filtration Rate Calc 74 87 BUN/Creatinine Ratio 23RATIO 20RATIO Glucose Level 135MG/DL 117MG/DL Calculated Osmolality 277MOSM/KG 277MOSM/KG Calcium Level 10.2MG/DL 9.6MG/DL Total Bilirubin 0.60MG/DL Icterus Index < 2 < 2 Aspartate Amino Transf (AST/SGOT) 17U/L Alanine Aminotransferase (ALT/SGPT) 22U/L Alkaline Phosphatase 112U/L Troponin I 0.124ng/ml 1.900ng/ml 3.860ng/ml IJ-Dna-G-Type Natriuretic Peptide 757PG/ML Total Protein 8.6G/DL Albumin 4.9G/DL Globulin 3.7G/DL Albumin/Globulin Ratio 1.3RATIO Lipase 54U/L Chemistry Specimen Hemolysis 31 < 15 < 15 Magnesium Level 2.0MG/DL Thyroid Stimulating Hormone (TSH) 1.71MIU/L Impression/Recommendation Impression 1. Chronic myelogenous leukemia 2. Acute on chronic chest pain, elevated troponin levels. Being followed by cardiology Recommendation Dr. Dillon had long discussion with patient. Will discontinue Tasigna, look at other treatment options when patient's acute cardiology problem resolved. Will see her in the outpatient setting when dismissed. All her questions are addressed. WENDY DILLON MD 05/02/16 7935: Past Medical History Current Medications Home Meds Reported Medications Ondansetron HCl (Ondansetron HCl) 8 Mg Tablet, 8 MG PO TID Y for NAUSEA 05/02/16 Nilotinib HCl (Tasigna) 150 Mg Capsule, 150 MG PO QID 05/01/16 Oxycodone HCl (Oxycodone HCl) 5 Mg Capsule, 10 MG PO BID 05/01/16 Morphine Sulfate (Ms Contin) 15 Mg Tablet.er, 15 MG PO BID 01/08/16 Allergies: Coded Allergies: imatinib (Verified Allergy, Severe, rash, 05/02/16) Impression/Recommendation Recommendation I interviewed and examined the patient and I developed the plan of care. Am planning to switch the patient to [facility] as an outpatient. АЛЕКСАНДР DORADO APRN May 02, 2016 10:03 WENDY DILLON MD May 02, 2016 18:09
--- NOTE | 2016-05-02 10:30 | NUR ---
Education: Cynthia Salas Rn- skilled laborer RN is here for patient education.
[2016-05-02] MEDS ORDERED: ONDA-56 PO (10:33)
[2016-05-02] MEDS ORDERED: HEPARIN 1,000units in NS 500ml BAG IV ONE (11:35)
[2016-05-02] MEDS ORDERED: LIDOCAINE 1% (10mg/ml) 30ml SDV ONE (11:35)
[2016-05-02] MEDS ORDERED: IOHEXOL 350mg/ml 200ml BOTTLE ONE (11:39)
--- NOTE | 2016-05-02 12:25 | NUR ---
Left for CV lab Pt left for CV lab via bed. Prior to leaving pt's groin was prepped and pt voided without difficulty.
[2016-05-02] MEDS ORDERED: FENTANYL 100mcg/2ml INJECTION ONE (12:36)
[2016-05-02] MEDS ORDERED: VERAPAMIL 5mg/2ml INJECTION IV ONE (12:37)
[2016-05-02] MEDS ORDERED: NITROGLYCERIN 50mg/10ml INJECTION IV ONE (12:37)
[2016-05-02] MEDS ORDERED: MIDAZOLAM 2mg/2ml INJECTION ONE (12:37)
[2016-05-02] MEDS ORDERED: SALINE FLUSH 10ml SYRINGE ONE ×2 (12:38→12:57)
[2016-05-02] MEDS ORDERED: TICAGRELOR 90 MG TABLET ONE (12:52)
[2016-05-02] MEDS ORDERED: LABETALOL 20mg/4ml INJECTION IV ONE (13:01)
[2016-05-02] MEDS ORDERED: ACETAMINOPHEN 325 MG TABLET PO PRN (13:15)
[2016-05-02] MEDS ORDERED: NITROGLYCERIN 0.4 MG SUBLINGUAL TABLET SL PRN (13:15)
[2016-05-02] MEDS ORDERED: MORPHINE SULFATE 4 MG SYRINGE IV PRN ×2 (13:15)
[2016-05-02] MEDS ORDERED: ATROPINE 1 MG/ML VIAL IV PRN (13:15)
[2016-05-02] MEDS ORDERED: LORAZEPAM 2 MG/ML INJECTION IV PRN (13:15)
[2016-05-02] MEDS ORDERED: ONDANSETRON 4mg/2ml INJECTION IV PRN (13:15)
[2016-05-02] MEDS ORDERED: BISACODYL 5 MG E.C. TABLET PO PRN (13:15)
[2016-05-02] MEDS ORDERED: METOCLOPRAMIDE 10mg/2ml INJECTION IV PRN (13:15)
[2016-05-02] MEDS ORDERED: PROMETHAZINE 25 MG INJECTION IV PRN (13:15)
[2016-05-02] MEDS ORDERED: LORAZEPAM 0.5 MG TABLET PO PRN (13:15)
[2016-05-02] MEDS ORDERED: MAG-AL + SIM LIQUID 30 ML UDC PO PRN (13:15)
[2016-05-02] MEDS ORDERED: HYDROCODONE/APAP 5 mg/325 mg TABLET PO PRN (13:15)
[2016-05-02] MEDS ORDERED: MILK OF MAGNESIA 30 ML SUSP PO PRN (13:15)
[2016-05-02] MEDS ORDERED: BISACODYL 10 MG SUPPOSITORY RECTALLY PRN (13:15)
--- NOTE | 2016-05-02 13:20 | NUR ---
Return: from the cath per bed. Denies chest discomfort.
[2016-05-02] MEDS ORDERED: ONDANSETRON 8 MG TABLET PO PRN (14:00)
--- NOTE | 2016-05-02 15:20 | CVPROF ---
DATE OF PROCEDURE May 02, 2016 REFERRING PHYSICIAN Xiomy Rayo, DO INDICATIONS The patient is a pleasant 55-year lady who was admitted with [id number] myocardial infarction and was referred for further evaluation by cardiac catheterization and possible intervention. INFORMED CONSENT Informed consent was obtained after explaining the procedure and the potential risks to the patient who agreed to proceed with the procedure. PROCEDURE 1. Left heart catheterization. 2. Coronary angiography. 3. Left ventriculography. 4. Primary stent of left circumflex artery using a 3.5 x 12 drug-eluting Resolute Integrity stent. TECHNIQUE She was prepped and draped in the usual sterile techniques. Conscious sedation was performed using Versed and fentanyl. 1% lidocaine was used for local anesthesia. Using modified Seldinger technique, arterial access was obtained into the right radial artery with placement of a 6-Kazakh arterial sheath. 3000 units of heparin, 300 mcg of nitroglycerin, and 2.5 mg of verapamil were given and her heparin drip was stopped. LEFT VENTRICULOGRAPHY Left ventriculography in single-plane WRIGHT shallow projection showed normal LV systolic function with ejection fraction of about 65% with no mitral regurgitation or gradient across the aortic valve. LVEDP was about 6. CORONARY ANGIOGRAPHY Left main was free of significant lesions and bifurcated into left anterior descending and left circumflex arteries. The left anterior descending artery had minor irregularities but no significant lesions in LAD or diagonals. Left circumflex artery was tortuous with subtotal occlusion in proximal segment. It was a fairly large vessel. The right coronary artery was a medium to large vessel and dominant with about 40% distal stenosis. After reviewing the images we decided to proceed with intervention on left circumflex artery. A 6-Kazakh [employer] left guide was advanced to the ostium of left main. A Runthrough wire was used to cross the lesion into distal circumflex. A 3.5 x 12 drug-eluting Resolute Integrity stent was delivered to the lesion site where it was deployed by inflating the balloon to 16 atmospheres. Next angiogram showed excellent results with no residual stenosis. The patient tolerated the procedure well with no complications. IMPRESSION 1. Normal LV systolic function with ejection fraction of 65%. 2. Coronary artery disease as described above with subtotal occlusion of the left circumflex artery. 3. Successful primary stent of left circumflex artery using a 3.5 x 12 drug-eluting Resolute Integrity stent. 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 Will keep her on dual antiplatelet therapy at least for one year and continue risk modification. MTDD
--- NOTE | 2016-05-02 15:20 | ECHOF ---
DATE OF PROCEDURE May 02, 2016 REFERRING PHYSICIAN Xiomy Rayo DO This is a two-dimensional echo with spectral Doppler, color-flow and M-mode. It was obtained in a patient with an acute coronary syndrome. Left atrial dimension is normal. Left ventricle end-diastolic dimension is normal. Left ventricle wall thickness is normal. Overall LV systolic function is normal, however, posterior and inferior russell are hypokinetic with ejection fraction of about 55%. Right atrium is normal. Right ventricle is normal. Aortic root dimension is normal. Mitral valve is morphologically normal with moderate mitral regurgitation. Aortic valve is a trileaflet structure with mild aortic insufficiency and no stenosis. Tricuspid valve shows mild tricuspid regurgitation with normal estimated pulmonary artery systolic pressure of 28. Pulmonary valve shows mild pulmonary insufficiency. There is no pericardial effusion. IMPRESSION 1. Wall motion abnormalities as described above with ejection fraction of about 55%. 2. Moderate mitral regurgitation. 3. Mild aortic insufficiency. 4. Mild tricuspid regurgitation with normal estimated pulmonary artery systolic pressure of 28. 5. Mild pulmonary insufficiency. MTDD
[2016-05-02] MEDS: OXYCODONE I.R. 5 MG TABLET PO PRN ×2 (15:37→20:12)
--- NOTE | 2016-05-02 17:00 | NUR ---
TR Band: See the post percutaneous record. A total of 13 cc of air is removed. The right wrist site is asymptomatic.
--- NOTE | 2016-05-02 17:15 | NUR ---
Dressing: is applied to the right wrist radial site.
--- NOTE | 2016-05-02 18:00 | NUR ---
Nausea: The patient is reting in bed. She c/o nausea. Zofran 4 mg IV is given.
--- NOTE | 2016-05-02 19:12 | NUR ---
COREG GIVEN AT THIS TIME. PT WAS PREVIOUSLY NAUSEATED AND DECLINED TO NAP, AFTER WAKING WAS ABLE TO EAT SOME DINNER AND TAKE THE PILL. RESTING IN BED, WILL CONTINUE TO MONITOR.
--- NOTE | 2016-05-02 20:00 | NUR ---
REFUSAL CO2 MONITOR AT THIS TIME.
[2016-05-02] MEDS: TICAGRELOR 90 MG TABLET PO SCH (20:12)
--- NOTE | 2016-05-02 20:12 | NUR ---
PRN TU X2 TABS GIVEN AT THIS TIME PER PT'S REQUEST FOR RIGHT HAND/WRIST PAIN RATED 5/10, RN OFFERED PRN TYLENOL BUT PT STATES SHE WANTS TO TAKE SOMETHING THAT WILL MAKE HER GO TO SLEEP. PT VERBALIZES THAT IS IS NOT UNCOMMON FOR HER TO TAKE 2 TU'S Q4H PRN NORMALLY. 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 WILL CONTINUE TO MONITOR.
[2016-05-02] MEDS ORDERED: ATORVASTATIN 40 MG TABLET PO SCH (22:00)
[2016-05-03] VITALS (12 sets, daily range): BP systolic 114–144; BP diastolic 58–89; PULSE 66–92; RESP 8–19; TEMP 97.4–98.2; O2SAT 96–98
--- NOTE | 2016-05-03 05:40 | NUR ---
REPORT REPORT RECEIVED FROM LESLEY APARICIO IN CCU.
[2016-05-03 05:52] LABS: BASOPHILS # (AUTO) 0.3 T/MM3 (0-0.2); BASOPHILS % (AUTO) 3.9 % (0-2); EOSINOPHILS # (AUTO) 0.2 T/MM3 (0-0.5); EOSINOPHILS % (AUTO) 2.6 % (0-4); HCT - HEMATOCRIT 37.3 % (36-46); HGB - HEMOGLOBIN 11.9 GM/DL (12-16); IMMATURE GRANULOCYTE # (AUTO) 0.01 T/MM3 (0.00-0.03); IMMATURE GRANULOCYTE % (AUTO) 0.1 % (0.0-0.5); LYMPHOCYTES % (AUTO) 13.9 % (23-45); MEAN CORPUSCULAR HGB CONC(MCHC 31.9 GM/DL (31-37); MEAN CORPUSCULAR VOLUME 84.8 UM3 (80-100); MEAN PLATELET VOLUME 11.5 UM3 (9.4-12.4); MONOCYTES # (AUTO) 0.3 T/MM3 (0-0.8); MONOCYTES % (AUTO) 4.1 % (0-9.0); NEUTROPHILS #(AUTO)-ABSOLUTE 5.3 T/MM3 (1.8-7.7); NEUTROPHILS % (AUTO) 75.4 % (33-66)
[2016-05-03 05:57] LABS: ANION GAP 11 MEQ/L (5-15); BUN/CREATININE RATIO 16 RATIO (6-26); CALCIUM 9.5 MG/DL (8.4-10.2); CHLORIDE 106 MEQ/L (98-107); CO2 - CARBON DIOXIDE 25 MEQ/L (22-30); CREATININE 0.7 MG/DL (0.7-1.2); GLOMERULAR FILTRATION RATE 87; GLUCOSE 102 MG/DL (65-110); SODIUM 142 MEQ/L (134-144)
--- NOTE | 2016-05-03 06:00 | NUR ---
RM 110 ARRIVED TO SURGICAL RM 110 FROM CCU VIA WHEELCHAIR.
--- NOTE | 2016-05-03 06:00 | NUR ---
TRANSFER TO SURGICAL 110 PER JASON TORRES APRN, PT STABLE, AWAKE AND VERBALIZES UNDERSTANDING OF TEACHING, REPORT GIVEN TO ELY SUTTON BEFORE TRANSFER.
[2016-05-03] MEDS: CARVEDILOL 3.125 MG TABLET PO SCH (08:39)
[2016-05-03] MEDS: MORPHINE SULFATE SR 15 MG TABLET PO SCH (08:40)
[2016-05-03] MEDS: TICAGRELOR 90 MG TABLET PO SCH (08:40)
[2016-05-03] MEDS: LISINOPRIL 2.5 MG TABLET PO SCH (08:41)
[2016-05-03] MEDS ORDERED: ASPIRIN *EC* 81mg TABLET PO SCH (09:00)
[2016-05-03] MEDS ORDERED: TICA90TA PO (11:03)
[2016-05-03] MEDS ORDERED: LISI2.5T2 PO (11:03)
[2016-05-03] MEDS ORDERED: ATOR40TA PO (11:03)
[2016-05-03] MEDS ORDERED: NITR0.4T SL (11:03)
[2016-05-03] MEDS ORDERED: CARV3.12 PO (11:03)
[2016-05-03] MEDS ORDERED: ASPI-1085 PO (11:03)
--- NOTE | 2016-05-03 12:04 | NUR ---
PROGRESS NOTE PT LEFT THE HOSPITAL, AMBULATORY AT THIS TIME, PT ALERT AND ORIENTED X3. VITAL SIGNS STABLE, ON RA. THIS RN WENT OVER DISCHARGE PAPERWORK WITH THE PT INCLUDING DIET, ACTIVITY, MEDICATIONS AND FOLLOW-UP APPOINTMENTS. THIS RN CONTACTED MARTINEZ VENEGAS WHO CALLED IN SCRIPTS TO PT'S PREFERRED PHARMACY AND GAVE SAMPLES OF BRILINTA TO THE PT PRIOR TO DISCHARGE. THIS RN WENT OVER THE NEW MEDICATIONS WITH THE PT AND ALSO WENT THROUGH POST CATHETERIZATION CARE INSTRUCTIONS, PT VERBALIZED UNDERSTANDING. PT'S IVS WERE DCD AND THE PT IDENTIFICATION BAND WAS REMOVED. ALL BELONGINGS SENT WITH PT. NO CONCERNS NOTED AT TIME OF DISCHARGE.
[2016-05-04 00:40] LABS: LDL CHOLESTEROL,CALCULATED 109.2 (66-159); RISK FACTOR 4.5 RATIO (0-4.0); VLDL CHOLESTEROL 24.8 MG/DL (0-28)
--- NOTE | 2016-06-21 16:39 | HPPDOC ---
ISAIAHRIRI Meek APRN 06/21/16 1615: HPI - Adult Date DATE: 05/02/16 TIME: 8:30 General Date of Admission Date of Admission: May 01, 2016 at 21:26 Chief Complaint: Chest pain History of Present Illness Yanet is a 55 year old patient of Dr. Dillon who has a history of CML and has been taking Tasigna daily. She has been having daily exertional angina each time she takes it. Last evening her symptoms worsened with angina at rest, severe chest pain, tightness, and shortness of breath. Despite resting, the patient's symptoms did not improve. She has no known history of coronary disease or CHF, She did have a negative heart workup several years ago, prior to starting the medication. Her initial Troponin in the ED was 0.124 and EKG was Sinus tach with ST depression in lateral leads and significant artifact, pain greatly improved with NTG SL - 1" paste placed , to relief. She was admitted to Dr. Beckham, in CCU, with heparin drip. Past Medical History Past Medical History Metabolic: cancer, DENIES: hypercholesterolemia, hypertension Cardiac: DENIES: A-fib, CAD, CHF, [place], angina Infectious: hepatitis B, hepatitis C Psychological: alcohol abuse, depression Surgical History Reproductive/: hysterectomy, other Current Medications Home Meds Active Scripts Aspirin *EC* (Aspirin EC) 81 Mg Tablet., 81 MG PO DAILY for 30 Days, #30 TAB 11 Refills Prov:RIRI COLON APRN 05/03/16 Nitroglycerin (Nitrostat) 0.4 Mg Tablet, 0.4 MG SL Q5MIN Y for ANGINA for 30 Days, #1 BOTTLE Prov:RIRI COLON APRN 05/03/16 Lisinopril (Lisinopril) 2.5 Mg Tablet, 2.5 MG PO DAILY for 30 Days, #30 TAB 11 Refills Prov:RIRI COLON APRN 05/03/16 Carvedilol (Coreg) 3.125 Mg Tablet, 3.125 MG PO BIDWM for 30 Days, #60 TAB 11 Refills Prov:RIRI COLON APRN 05/03/16 Atorvastatin Calcium (Lipitor) 40 Mg Tablet, 40 MG PO HS for 30 Days, #30 TAB 11 Refills Prov:RIRI COLON APRN 05/03/16 Ticagrelor (Brilinta) 90 Mg Tablet, 90 MG PO BID for 30 Days, #60 TAB 11 Refills Prov:RIRI COLON ECHOCARDIOGRAPH TECHNICIAN 05/03/16 Reported Medications Ondansetron HCl (Ondansetron HCl) 8 Mg Tablet, 8 MG PO TID Y for NAUSEA 05/02/16 Oxycodone HCl (Oxycodone HCl) 5 Mg Capsule, 1 TAB PO PRN 05/01/16 Morphine Sulfate (Ms Contin) 15 Mg Tablet.er, 15 MG PO BID 01/08/16 Allergies: Coded Allergies: imatinib (Verified Allergy, Severe, rash, 05/02/16) Family History FOUND: CAD, COPD, other Vaccines NO HISTORY NO HISTORY No PT REPORTS 2 YEARS AGO Social History Smoking Status: Former smoker (40 pack year history. Quit 2013) Sexuality: male partner Number of Children: 1 Advance Directives: No DPOA for Healthcare Only Review of Systems Constitutional: DENIES: chills, dizziness, fever, weakness Eyes Vision: REPORTS: double vision ENMT Hearing: DENIES: tinnitus Balance: DENIES: vertigo Cardiovascular chest pain, DENIES: dyspnea on exertion, murmur, orthopnea Rhythm/Rate: DENIES: irregular beat, palpitations Vascular: DENIES: pedal edema Pulmonary Respiratory: dyspnea (with chest pain), DENIES: cough, sputum GI Upper Abdomen: DENIES: nausea, vomiting Lower Abdomen: DENIES: blood in stool, diarrhea General: DENIES: dysuria Integumentary Skin: DENIES: rash, sores Neurological General: DENIES: headache, numbness, seizures, syncope, weakness All Other Systems All Other Systems: Reviewed (remainder of 10-point ROS Neg.) Physical Exam General General Nourishment: well nourished, apparent age Height (Feet): 5 Height (Inches): 7.00 Telemetry Rhythm: Sinus Rhythm ENMT Brief: FOUND: mucosa moist Neck Brief: NOT FOUND: JVD, carotid bruits Respiratory Brief: FOUND: clear all kapoor, equal bilaterally, NOT FOUND: rales , wheezes Cardiovascular (brief) Cardiac Brief: FOUND: regular rate, regular rhythm, NOT FOUND: click, gallop, murmur, pedal edema Abdomen (brief) Abdominal Brief: FOUND: BS normo active x4, soft Integumentary (brief) Integumentary Brief: FOUND: dry, pink, warm Neurologic RN Documented GCS Eye Opening: Verbal: Motor: Total: Psychiatric (brief) FOUND: alert, attentive, oriented EKG 0838: SR, Nonspecific ST changes Radiology DATE OF EXAM: 05/01/16 ORDERING DOCTOR: JULISSA NELSON MD TYPE OF EXAM: CHEST 1 VIEW REASON FOR EXAM: chest pain Indication: ITS.REASON: chest pain and back pain for three weeks PROCEDURE: CHEST 1 VIEW: Encounter: Initial Comparison: April 23, 2014 Findings: The lungs are stable in appearance without new focal airspace consolidation. There is no pleural effusion or pneumothorax. The heart size, pulmonary vascularity and mediastinal contours are unchanged. IMPRESSION: Stable appearance of the chest without acute cardiopulmonary disease Assessment & Plan Problems: (1) NSTEMI (non-ST elevated myocardial infarction) Status: Acute Assessment & Plan: Severe chest pain, tightness, and shortness of breath at rest. pain greatly improved with NTG SL - 1" paste placed , to relief. Initial Troponin 0.124 --> 1.90--> 3.86. Initial EKG: Sinus tach with ST depression in lateral leads and significant artifact. Continue Heparin drip, Left heart cath today.. (2) Chronic myelogenous leukemia Status: Chronic Assessment & Plan: Per Dr. Portillo. Patient takes Tasigna. Code Status Full Code Hospital Course Summary Disclaimer The hospital course summary below is not to be considered part of the above Progress Note. JAKE BECKHAM MD 07/03/16 1027: Past Medical History Current Medications Home Meds Active Scripts Aspirin *EC* (Aspirin EC) 81 Mg Tablet., 81 MG PO DAILY for 30 Days, #30 TAB 11 Refills Prov:RIRI COLON APRN 05/03/16 Nitroglycerin (Nitrostat) 0.4 Mg Tablet, 0.4 MG SL Q5MIN Y for ANGINA for 30 Days, #1 BOTTLE Prov:RIRI COLON APRN 05/03/16 Lisinopril (Lisinopril) 2.5 Mg Tablet, 2.5 MG PO DAILY for 30 Days, #30 TAB 11 Refills Prov:RIIR COLON APRN 05/03/16 Carvedilol (Coreg) 3.125 Mg Tablet, 3.125 MG PO BIDWM for 30 Days, #60 TAB 11 Refills Prov:RIRI COLON ECHOCARDIOGRAPH TECHNICIAN 05/03/16 Atorvastatin Calcium (Lipitor) 40 Mg Tablet, 40 MG PO HS for 30 Days, #30 TAB 11 Refills Prov:RIRI COLON ECHOCARDIOGRAPH TECHNICIAN 05/03/16 Ticagrelor (Brilinta) 90 Mg Tablet, 90 MG PO BID for 30 Days, #60 TAB 11 Refills Prov:ISAIAHRIRI Meek ECHOCARDIOGRAPH TECHNICIAN 05/03/16 Reported Medications Ondansetron HCl (Ondansetron HCl) 8 Mg Tablet, 8 MG PO TID Y for NAUSEA 05/02/16 Oxycodone HCl (Oxycodone HCl) 5 Mg Capsule, 1 TAB PO PRN 05/01/16 Morphine Sulfate (Ms Contin) 15 Mg Tablet.er, 15 MG PO BID 01/08/16 Allergies: Coded Allergies: imatinib (Verified Allergy, Severe, rash, 05/02/16) Assessment & Plan Hospital Course Summary Hospital Course Summary After examining the patient I agree with the above assessment. I am involved in the formulation of the patient's plan of care. RIRI COLON APRN Jun 21, 2016 16:15 JAKE BECKHAM MD Jul 03, 2016 10:27
== END 2016-05-03 12:04 | disposition home or self-care (01) | DRG 247 ==
LOC: ED 20:12 → CCU 21:26 → SRG 05-03 06:00
PROVIDERS: ADMIT Internal Medicine Cardiovascular Disease; ATTEND Internal Medicine Cardiovascular Disease
PROC: 027034Z Dilation of Coronary Artery, One Artery with Drug-eluting Intraluminal Device, Percutaneous Approach (ICD-10-PCS; principal; 2016-05-02)
PROC: 4A023N7 Measurement of Cardiac Sampling and Pressure, Left Heart, Percutaneous Approach (ICD-10-PCS; 2016-05-02)
PROC: B2151ZZ Fluoroscopy of Left Heart using Low Osmolar Contrast (ICD-10-PCS; 2016-05-02)
PROC: B2111ZZ Fluoroscopy of Multiple Coronary Arteries using Low Osmolar Contrast (ICD-10-PCS; 2016-05-02)
PROC: B24BZZZ Ultrasonography of Heart with Aorta (ICD-10-PCS; 2016-05-02)
DX: I21.4 Non-ST elevation (NSTEMI) myocardial infarction (principal); C92.90 Myeloid leukemia, unspecified, not having achieved remission; I25.10 Atherosclerotic heart disease of native coronary artery without angina pectoris; Z79.899 Other long term (current) drug therapy; Z79.891 Long term (current) use of opiate analgesic; Z87.891 Personal history of nicotine dependence
CPT/HCPCS: 36415; 80048; 80053; 80061; 83690; 83735; 83880; 84443; 84484; 85025; 85610; 92928; 93005; 93306; 93458; 96374